=== PATIENT | female | born 1965 ===

== ENCOUNTER 2024-11-16 21:23 | Emergency (ER) | payer OTHER ==
[~2024-11-16] VITALS: Ht 162.6 cm; Wt 88.5 kg
[2024-11-16] MEDS ORDERED: FentaNYL Citrate 50 MCG/ML 2 ML Injection IV PRN (21:35)
[2024-11-16] MEDS ORDERED: Atarax10 MG PO (21:40)
[2024-11-16] MEDS ORDERED: OXYC5 PO (22:16)
== END 2024-11-16 23:04 | disposition home or self-care (01) ==
LOC: ER 21:23
DX: S52.501A Unspecified fracture of the lower end of right radius, initial encounter for closed fracture (principal); S43.401A Unspecified sprain of right shoulder joint, initial encounter; W18.30XA Fall on same level, unspecified, initial encounter
CPT/HCPCS: 29125; 73060; 73090; 96374-59; 99284-25; J3010